=== PATIENT | male | born 1990 | race Caucasian/White ===

== ENCOUNTER → 2016-05-07 | Outpatient (CLI) | payer OTHER ==
[~2016-05-07] VITALS: Ht 170.2 cm; Wt 75.6 kg
[~2016-05-07] MED LIST: ACET1TAB84 PO; BISA10SU3 PR; DEXA0.5E3 PO; DEXA2TAB PO; DIAZ-165 PO; DOCU-94 PO; DXM/4 PO; KFL/250 PO; ONDA4TAB46 PO; SCOP1DIS14 TD; SULF800T23 PO; [UNRECOGNIZED DRUG - CODE] PO
[2016-05-07 14:43] VITALS: BP 144/77; PULSE 69; Ht 170.2 cm; Wt 75.6 kg
== END | disposition home or self-care (01) ==
LOC: C.NEUR 14:15
PROVIDERS: ATTEND Internal Medicine Pulmonary Disease
DX: R06.83 Snoring (principal); R53.83 Other fatigue; R06.81 Apnea, not elsewhere classified; Z78.9 Other specified health status

== ENCOUNTER → 2016-06-09 | Outpatient (CLI) | payer OTHER ==
--- NOTE | 2016-06-10 08:10 | PAP/PSG TECHNICIAN REPORT ---
[facility] Video Game Repair Technician Polysomnogram Report Study name: None Report date: 06/10/2016 Study date: 06/09/2016 Referring Physician: Sohan Champion M.D. Name: MIKE ESPINOSA Interpreting Physician: Sohan Champion M.D. Date of : 1990 Video Game Repair Technician: Rhiannon Salazar, PSGT. Sex: Male Age: 25 StudyType: PSG Weight: 160 lbs Height: 25 years, Height 5' 0" Neck Circum:15 inches BMI: 31.24 Medications: NONE Patient History 25 YR. OLD MALE IN ROOM 5, WITH FRAGMENTED SLEEP ONSET MANY YEARS, HE WAS ALSO TOLD WHILE ON A FLIGHT THAT HE STOPPED BREATHING WHILE SLEEPING. HE DENIES SNORING.ESS= 1, NECK = 15 INCHES. Parameters Monitored NPSG: E1-M2, E2-M1, Fp1-M2, Fp2-M1, F3-M2, F4-M2, F4-M1, C3-M2, C4-M2, C4-M1, O1-M2, O2-M2, O2-M1, T3-M2, T4-M1, P3-M2, P4-M1, CHIN1, CHIN2, HR, EKG, Legs, PFLOW, SNOR, FLOW, CFLOW, Tidal Volume, THOR, ABDO, SpO2, PLTH, CPRESS, ETCO2 Wave, ETCO2, pH Sleep Architecture Sleep Stages Time at Lights Off 10:46:50 PM STAGES Time (min.) TST (%) Time at Lights On 6:08:50 AM Wake 43.5 -- Total Recording Time (TRT) 447.50 min. N1 11.5 3 Total Sleep Period (TSP) 410.0 min. N2 260.5 65 Total Sleep Time (TST) 398.0min. N3 46.5 12 Awake Time 47.5 min. REM 79.5 20 Wake after Sleep Onset 12.0 min. Sleep Efficiency (SE) 90 % Sleep Onset Latency (MERI) 32.0 min. Number of Stage 1 Shifts None Awakenings 5 Stage Changes 34 Number of REM periods 5 REM 79.5 20 REM Latency 61.5 min. NREM 318.5 80 Body Position Analysis Supine Right Left Side Prone Vertical Total Sleep Time (min.) 143.3 122.0 147.0 269.03 0.0 0.0 Total Sleep Time (%) 32% 31% 37% 68 0% N/A% Total Sleep Time REM (min.) 36.0 28.0 15.5 None 0.0 0.0 Total Sleep Time NREM (min.) 93.0 94.0 131.5 None 0.0 0.0 Intermittent Wake (min.) 14.3 3.5 25.7 None 0.0 0.0 Total Sleep Period (%) 33% None None None None None Arousals Myoclonus (PLM) * Events Count Index Events Count Index Spontaneous 47 7 Events Awake (PLMW) 1 1.4 Respiratory 1 0.2 Events Asleep w/ Arousal (PLMA) 3 0.5 PLM 3 0 Events Asleep w/o Arousal (PLMS) 82 12.4 Snoring 1 0 Total Asleep 85 12.8 Total 52 8 Total 86 12 Respiratory Analysis * CA OA MA CH H RERA Total Count 2 1 0 0 2 0 5 Index 0.3 0.2 0.0 0 0.3 0 0.8 Mean Duration 11.5 9.8 0.0 0.00 15.7 0.0 12.8 Longest Duration 13.6 9.8 0.0 0.00 0.0 0.0 21.2 Respiratory Event Summary Total Supine ~Supine Right Left Prone REM NREM Apneas Count 3 2 1 1 0 N/A 2 1 Index 0.5 1 0 0.5 0.0 N/A 2 0 Hypopneas (4% Desat) Count 2 0 2 2 0 N/A 0 2 Index 0.3 0.0 0 1.0 0.0 N/A 0.0 0.4 Apneas & All Hypopneas Count 5 2 3 3 0 N/A 2 3 Index 0.8 1 1 1 0 N/A 1.5 0.6 Respiratory Events (Casing Flusher+All Hyp+RERA) Count 5 2 3 3 0 N/A 2 3 Index 0.8 1 1 1.5 0.0 N/A 1.5 0.6 Respiratory Related Arousal Count 1 2 0 0 0 N/A 0 1 Index 0.2 0 0 0 0 N/A 0 0 Snoring Analysis Supine Right Left Prone REM NREM Total Snore duration 3.3 min Snores count 79 25 5 N/A 13 96 109 Snore mean duration 1.8 Sec Snores index 37 12 2 N/A 9.8 18.1 16.4 TST with snoring (%) 0.8% Desaturation Event Summary: Minimum %SpO2 Event Count Mean/Min/Max Duration(sec.) Desaturation Index % Time In Bed > 90 2 28.8 / 12.3 / 45.3 0.3 99.9 86 - 90 0 N/A 0.0 0.1 81 - 85 0 N/A 0.0 0.0 76 - 80 0 N/A 0.0 0.0 71 - 75 0 N/A 0.0 0.0 66 - 70 0 N/A 0.0 0.0 61 - 65 0 N/A 0.0 0.0 56 - 60 0 N/A 0.0 0.0 51 - 55 0 N/A 0.0 0.0 < 50 0 N/A 0.0 0.0 Total REM NREM Awake <50% 0.0 min. 0.0 min. 0.0 min. 0.0 min. 51 - 60% 0.0 min. 0.0 min. 0.0 min. 0.0 min. 61 - 70% 0.0 min. 0.0 min. 0.0 min. 0.0 min. 71 - 80% 0.0 min. 0.0 min. 0.0 min. 0.0 min. 81 - 90% 0.3 min. 0.0 min. 0.3 min. 0.0 min. 91 - 100% 436.2 min. 79.1 min. 315.8 min. 41.2 min. Average 93 94 93 94 Minimum SpO2 90 91 90 91 Desaturation Event Index 0.3 0.0 0.4 0.0 # Desat. Events below 89% N/A N/A N/A N/A Time(%) with Saturation below 89% 0.0 0.0 0.0 0.0 Time(min.) with Saturation below 89% 0.0 0.0 0.0 0.0 Time (mins) REM (mins) NREM (mins) % of TST SpO2 Below 90% 2 N/A N2 0.0 SpO2 Below 88% 0 0 0 0 Heart Rate Analysis Min (bpm) Max (bpm) Average (bpm) Awake 32 127 52 NREM 42 127 54 REM 46 92 57 Overall 42 127 55 Supplemental O2 Values Minimum O2 level: None Value Start Time End Time Video Game Repair Technician Comments PSG Study Mr. Espinosa slept in the right, left, and supine positions. Cardiac arrhythmia displayed 6 pvc's, No PLM's noted. No bruxism noted. Snoring was noted and scored as a 1 on a scale of 1 through 5. (0=no snoring, 5=snoring loud enough to be heard through a closed door or down the carney way) Mr. Espinosa awoke to use the restroom zero times during the night. Mr. Espinosa stated, I did not sleep as well as I do when I am in my own bed. The final report will be interpreted and signed by a sleep physician. The completed physician report will then be placed in the patient medical record. Therapy (cm H2O) 0 TIB (min.) 441.5 TST (min.) 398.0 Sleep Onset (min.) 32.0 REM Onset From Sleep (min.) 61.5 Sleep Efficiency % 90 Wakefulness (%) 10 Wakefulness (min.) 47.5 NREM 1 (%) 3 NREM 1 (min.) 11.5 NREM 2 (%) 65 NREM 2 (min.) 260.5 NREM 3 (%) 12 NREM 3 (min.) 46.5 REM (%) 20 REM (min.) 79.5 # Arousals 52 Arousal Index 8 # Snore 109 Snore Index 16.4 AHI 0.8 AHI Supine 1 AHI Non-Supine 1 NREM AHI 0.6 REM AHI 1.5 RDI 0.8 # Obstructive Apnea 1 # Central Apnea 2 # Mixed Apnea 0 # Hypopneas 2 RERAs 0 Total Respiratory Events 5 Time Below SpO2 89% (min.) 0.0 Mean NREM SpO2 (%) 93 Mean REM SpO2 (%) 94 Mean Sleep SpO2 (%) 93 Min NREM SpO2 (%) 90 Min REM SpO2 (%) 91 Position Supine (min.) 143.3 Position Non-supine (min.) 269.0 LM Index Sleep 12.8 LM Index NREM 10.4 LM Index REM 22.6 Mean Heart Rate (bpm) 55 Min Heart Rate (bpm) 42
--- NOTE | 2016-06-11 08:49 | POLYSOMNOGRAPH REPORT ---
CLINICAL DATA: 25-year-old male with BMI of 31.24 referred by myself and Dr. Coulter. 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 He was told on a flight that he stopped breathing while sleeping. SLEEP ARCHITECTURE: Total sleep period was 410 minutes. Total sleep time was 398 minutes divided between 318.5 minutes of non-REM sleep and 79.5 minutes of REM sleep. Sleep onset latency was slightly delayed at 32 minutes. REM latency was 61.5 minutes. Sleep efficiency was 90%. Wake after sleep onset was 12 minutes. Sleep consisted of stage N1 3%, N2 65%, N3 12%, and REM 20%. AROUSAL DATA: 52 arousals recorded for an index of 8 per hour. 47 were spontaneous. PLM DATA: 85 limb movements during sleep were noted for an index of 12.8 per hour with arousal of 0.5 per hour. RESPIRATORY DATA: There was no significant sleep apnea/hypopnea was noted. The AHI was 0.8. There were 2 central and 1 obstructive apneic episodes. The longest duration of apnea was 13.6 seconds. There were 2 hypopneic episodes. The mean length of hypopneas was 15.7 seconds. OXIMETRY DATA: No hypoxemia was seen. Oxygen naun was 90%. Mean saturation was 93%. EKG: Heart drainage from 42-127 beats per minute. Occasional PVCs were noted. STRIPPING SHOVEL OILER'S COMMENTS: The patient slept in the right, left, and supine positions. Snoring was mild, rated 1 on a scale of 1 through 5. He had four sleep cycles each of which ended in REM sleep. IMPRESSION: No evidence of clinically significant sleep apnea/hypopnea, nocturnal hypoxemia or abnormal limb movements during sleep to explain this patient's symptoms. RECOMMENDATIONS: The patient should continue to practice good sleep hygiene. BANDAR
== END | disposition home or self-care (01) ==
LOC: C.NEUR 20:00
PROVIDERS: ATTEND Internal Medicine Pulmonary Disease
DX: R53.83 Other fatigue (principal); R06.83 Snoring; R06.81 Apnea, not elsewhere classified

== ENCOUNTER → 2016-06-18 | Outpatient (CLI) | payer OTHER ==
[~2016-06-18] VITALS: Ht 170.2 cm; Wt 73.3 kg
[2016-06-18 16:18] VITALS: BP 122/78; PULSE 71; Ht 170.2 cm; Wt 73.3 kg
== END | disposition home or self-care (01) ==
LOC: C.NEUR 14:55
PROVIDERS: ATTEND Internal Medicine Pulmonary Disease
DX: R53.83 Other fatigue (principal); R06.83 Snoring

== ENCOUNTER → 2016-10-30 | Outpatient (CLI) | payer OTHER ==
--- NOTE | 2016-10-30 16:59 | DIAGNOSTIC IMAGING REPORT ---
MRI OF THE LUMBAR SPINE WITHOUT CONTRAST CLINICAL HISTORY: RIGHT SIDED BACK PAIN; SCIATICA; LUMBOSACRAL PAIN COMPARISON STUDY: No previous studies for comparison. TECHNIQUE: Utilizing a 1.5 Nahomy magnet and dedicated coil, multiplanar, multiecho imaging of the lumbar spine was performed without IV contrast. FINDINGS: For purposes of numbering on this exam, the L5-S1 disc space is assigned to axial image 27 of 30. Alignment of the lumbar spine is anatomic. Vertebral body heights are maintained. There is no intracanalicular mass or fluid collection. Paravertebral soft tissues are unremarkable. Conus terminates at the upper L1 level. L1-2: The central canal and neural foramen are patent. L2-3: The central canal and neural foramina are patent. L3-4: The central canal and neural foramen are patent. L4-5: The central canal and neural foramen are patent. L5-S1: The central canal and neural foramen are patent. IMPRESSION: Unremarkable MRI of the lumbar spine. Electronically signed by: Felipe Branch M.D. 10/30/2016 4:57 PM Dictated Date/Time: 10/30/2016 4:55 PM
--- NOTE | 2016-10-30 23:27 | DIAGNOSTIC IMAGING REPORT ---
MRI OF THE THORACIC SPINE WITHOUT CONTRAST CLINICAL HISTORY: Right-sided back pain. Sciatica. COMPARISON: None. TECHNIQUE: Utilizing a 1.5 Nahomy magnet and dedicated coil, multiplanar, multiecho imaging of the thoracic spine was performed without IV contrast. FINDINGS: Slack Line Yarder images demonstrate a 3.2 x 2.9 cm mass-like abnormality either within the left cerebellar hemisphere or the cerebellar vermis. This is suboptimally assessed on this exam. Alignment of the thoracic spine is anatomic. Vertebral body heights are maintained. Thoracic cord signal and caliber are normal. There is no intracanalicular mass or fluid collection. Paravertebral soft tissues are unremarkable. IMPRESSION: 1. 3.2 x 2.9 cm mass-like abnormality within the left cerebellar hemisphere or cerebellar vermis. This is suboptimally assessed on this exam but is suggestive of a neoplasm and differential considerations include benign and malignant etiologies. An MRI of the brain with and without contrast is recommended. Discussed with Amado Newman at time of dictation 2. Normal MRI of the thoracic spine. Electronically signed by: Felipe Branch M.D. 10/30/2016 11:26 PM Dictated Date/Time: 10/30/2016 4:35 PM
== END ==
LOC: C.MRIBC 15:39
PROVIDERS: ATTEND Physician Assistant
DX: M54.41 Lumbago with sciatica, right side (principal)

== ENCOUNTER → 2016-10-31 | Outpatient (CLI) | payer OTHER ==
[~2016-10-31] MED LIST changes: +GADAVIST IV PRN
--- NOTE | 2016-10-31 17:41 | DIAGNOSTIC IMAGING REPORT ---
MRI OF THE BRAIN WITHOUT AND WITH IV CONTRAST CLINICAL HISTORY: Abnormal MRI the thoracic spine. Possible cerebellar mass. COMPARISON STUDY: MRI the thoracic spine dated 10/30/2016 TECHNIQUE: MRI of the brain was performed from the vertex to the skull base utilizing various T1 and T2 weighted sequences. Following the IV administration of 7.5 mL of Gadavist contrast, additional enhanced images were obtained. FINDINGS: Sagittal T1, axial diffusion, proton density and T2 weighted axial, coronal FLAIR, and pre and post axial T1-weighted images were acquired. These were supplemented with post gadolinium coronal T1 weighted images. There is a 32 mm cerebellar mass located posterior to the fourth ventricle, slightly eccentric to the left. The mass is slightly hypointense to brain on T1-weighted images, and hyperintense to brain on T2-weighted and FLAIR images. There is no significant postcontrast enhancement. No additional masses are visualized. Axial diffusion-weighted images reveal no evidence of acute or subacute infarction. There is no evidence of ventricular dilatation. Proton density T2-weighted and FLAIR images reveal no significant signal abnormalities with the exception of the cerebellar mass. There are no abnormal flow voids. There is no evidence of pathologic enhancement. IMPRESSION: 1. 32 mm posterior fossa mass located posterior to the fourth ventricle, slightly eccentric to the left. There is no significant postcontrast enhancement. Given the lack of symptoms, this lesion should be presumed neoplastic until proven otherwise. There is no hydrocephalus. Neurosurgical consultation is recommended. Electronically signed by: Huang Hillman M.D. 10/31/2016 5:40 PM Dictated Date/Time: 10/31/2016 5:31 PM
--- NOTE | 2016-10-31 17:51 | DIAGNOSTIC IMAGING REPORT ---
MRI CERVICAL SPINE COMBO CLINICAL HISTORY: Right-sided back pain. Abnormal MRI the thoracic spine. TECHNIQUE: Sagittal and axial T1, T2 and STIR images were obtained. COMPARISON STUDY: MRI the thoracic spine dated 10/30/2016 There are no suspicious areas of marrow replacement. No intrinsic cervical cord lesions are visualized. There is a 3 cm mass located within the posterior fossa, posterior to the fourth ventricle. C2-3: There is no evidence of disc bulge or focal herniation. There is no spinal or foraminal stenosis. C3-4: There is no evidence of disc bulge or focal herniation. There is no spinal or foraminal stenosis. C4-5: There are no disc bulges or focal herniations. There is no spinal or foraminal stenosis. C5-6 :There are no disc bulges or focal herniations. There is no spinal or foraminal stenosis. C6-7: There is no evidence of disc bulge or focal herniation. There is no evidence of spinal or foraminal stenosis. C7-T1: There is no evidence of disc bulge or focal herniation. There is no evidence of spinal or foraminal stenosis. IMPRESSION: 1. 3 cm relatively midline posterior fossa mass located posterior to the fourth ventricle. 2. Otherwise normal MRI of the cervical spine. Electronically signed by: Huang Hillman M.D. 10/31/2016 5:50 PM Dictated Date/Time: 10/31/2016 5:46 PM
== END | disposition home or self-care (01) ==
LOC: C.MRI 15:38
PROVIDERS: ATTEND Physician Assistant
DX: G93.9 Disorder of brain, unspecified (principal)

== ENCOUNTER → 2016-12-25 | Outpatient (CLI) | payer OTHER ==
[~2016-12-25] MED LIST changes: -GADAVIST IV PRN
--- NOTE | 2016-12-25 17:10 | DIAGNOSTIC IMAGING REPORT ---
CT HEAD WITHOUT CONTRAST (CT) CLINICAL HISTORY: DIZZINESS HISTORY OF RECENT CRANIOTOMY. COMPARISON STUDY: MRI the brain dated 10/31/2016 TECHNIQUE: Axial CT of the brain is performed from the vertex to the skull base. IV contrast was not administered for this examination. A dose lowering technique was utilized adhering to the principles of ALARA. CT DOSE: 844.62 mGy.cm FINDINGS: There are postsurgical changes of the occipital craniotomy. There is a posterior cerebellar resection cavity measuring approximately 46 mm in diameter. There is minimal mass effect on the fourth ventricle. There is no acute hemorrhage. There is a 57 mm fluid collection within the suboccipital soft tissues, likely representing a postsurgical seroma or CSF collection. There is no evidence of pathologic ventricular dilatation. There is no evidence of acute sinusitis IMPRESSION: 1. Postsurgical changes of occipital craniotomy with interval resection of the previously identified cerebellar mass 2. 46 mm posterior cerebellar resection cavity. 3. Mild mass effect on the fourth ventricle. No evidence of significant hydrocephalus 4. 57 mm partially visualized fluid collection in the suboccipital soft tissues, likely representing a postsurgical seroma or CSF collection. Electronically signed by: Huang Hillman M.D. 12/25/2016 5:08 PM Dictated Date/Time: 12/25/2016 5:02 PM
== END | disposition home or self-care (01) ==
LOC: C.CTS 16:31
PROVIDERS: ATTEND Physical Medicine & Rehabilitation
DX: R42 Dizziness and giddiness (principal); R93.0 Abnormal findings on diagnostic imaging of skull and head, not elsewhere classified

== ENCOUNTER 2017-01-10 11:27 | Emergency (ER) | payer OTHER ==
[~2017-01-10] VITALS: Ht 170.2 cm; Wt 59.2 kg
[2017-01-10 11:35] VITALS: TEMP 36.6; Ht 170.2 cm; Wt 59.2 kg
[2017-01-10] MEDS ORDERED: SODIUM CHLORIDE 0.9% 1000ML 1,000 ML IV STA ×2 (11:38→12:57)
[2017-01-10] MEDS ORDERED: SCOP1DIS14 TD (12:00)
[2017-01-10] MEDS ORDERED: DOCU-94 PO (12:00)
[2017-01-10] MEDS ORDERED: KFL/250 PO (12:00)
[2017-01-10] MEDS ORDERED: DEXA0.5E3 PO (12:00)
[2017-01-10] MEDS ORDERED: BISA10SU3 PR (12:00)
[2017-01-10] MEDS ORDERED: ONDA4TAB46 PO (12:00)
[2017-01-10 12:09] VITALS: O2SAT 97
[2017-01-10 12:20] LABS: BASO % 0.1 %; BASO ABS # 0.02 K/uL (0-0.2); COMPLETE YES; EOS % 0.2 %; HEMATOCRIT 47.7 % (42-52); IG% 1.8 %; LYMPH % 6.6 %; LYMPH ABS # 1.29 K/uL (1.2-3.4); MEAN CELL VOLUME 86.1 fL (80-100); MEAN CORPUSCULAR HEMOGLOBIN 31.2 pg (25-34); MEAN CORPUSCULAR HGB CONC 36.3 g/dl (32-36); MEAN PLATELET VOLUME 9.6 fL (7.4-10.4); MONO % 7.1 %; NEUT % 84.2 %; PLATELET COUNT 274 K/uL (130-400); RED BLOOD COUNT 5.54 M/uL (4.7-6.1); WHITE BLOOD COUNT 19.62 K/uL (4.8-10.8)
[2017-01-10] MEDS ORDERED: ONDANSETRON INJ 2 MG/ML 2 ML VIAL IV STA (12:20)
[2017-01-10] MEDS ORDERED: MoRPHine SULFATE 4 MG/ML 1 ML CARP\\VIAL IV STA ×2 (12:20→13:16)
[2017-01-10 12:32] LABS: PARTIAL THROMBOPLASTIN RATIO 0.9; PROTHROMBIN TIME (PATIENT) 10.5 SECONDS (9.0-12.0)
[2017-01-10 12:41] LABS: BUN/CREATININE RATIO 15.2 (10-20); CALCIUM 9.7 mg/dl (8.5-10.1); CREATININE 1.2 mg/dl (0.60-1.40); MAGNESIUM 2.3 mg/dl (1.8-2.4); POTASSIUM 3.6 mmol/L (3.5-5.1)
[2017-01-10 12:46] LABS: ALB/GLOB RATIO 1.2 (0.9-2)
--- NOTE | 2017-01-10 12:55 | DIAGNOSTIC IMAGING REPORT ---
KUB CLINICAL HISTORY: Minimal bowel movements x 1 month. Abdominal and back pain. COMPARISON STUDY: None. FINDINGS: The bowel gas pattern is normal. Pelvic calcifications likely reflect phleboliths. There is a moderate to large amount of stool within the colon and rectum. IMPRESSION: 1. No evidence of a bowel obstruction. 2. Moderate to large amount of stool within the colon and rectum. Electronically signed by: Felipe Branch M.D. 01/10/2017 12:54 PM Dictated Date/Time: 01/10/2017 12:53 PM
[2017-01-10] MEDS ORDERED: OPTIRAY 320 IV PRN (13:30)
[2017-01-10] MEDS ORDERED: HYDROmorphone INJ 0.5 MG/0.5 ML SYR IV STA (14:53)
[2017-01-10 15:17] LABS: URINE APPEARANCE CLEAR (CLEAR); URINE BILIRUBIN NEG (NEG); URINE COLOR YELLOW; URINE NITRITE NEG (NEG); URINE SPECIFIC GRAVITY 1.019 (1.000-1.030); UROBILINOGEN NEG (NEG); ZZUR CULT IF INDIC CLEAN CATCH NO
[2017-01-10 15:22] LABS: MANUAL MICROSCOPIC REQUIRED? NO; REVIEW REQ? NO
--- NOTE | 2017-01-10 16:17 | DIAGNOSTIC IMAGING REPORT ---
CT ABD/PELVIS IV AND ORAL CONT CLINICAL HISTORY: Lower abdominal pain COMPARISON STUDY: None. TECHNIQUE: Following the IV administration of 94 mL of Optiray-320, CT scan of the abdomen and pelvis was performed from the lung bases to the proximal femurs. Images are reviewed in the axial, sagittal, and coronal planes. IV contrast was administered without complication. A dose lowering technique was utilized adhering to the principles of ALARA. CT DOSE: 298.45 mGy.cm FINDINGS: Lower chest: The heart is normal in size and configuration, without pericardial effusion. The lung bases and pleural spaces are clear. Liver: The contrast-enhanced liver is normal in size, contour, and attenuation. There is no intrahepatic biliary ductal dilatation. The hepatic veins and portal veins are patent. Gallbladder: Unremarkable. Spleen: Normal in size and attenuation. Pancreas: Unremarkable. Adrenal glands: Unremarkable. Kidneys: There are punctate nonobstructing left renal calculi. There is right-sided perinephric edema. There is minor right-sided hydronephrosis. There is right-sided periureteral edema. There is minor right-sided hydroureter. There is edema present at the ureterovesical junction. There is a 3 mm bladder calculus. Bowel: There are no transition zones indicate bowel obstruction. There is moderate fecal retention and there is moderate fluid within the left colon. The appendix appears normal. Peritoneum: There is no intraperitoneal free air or abdominal ascites. Vasculature: The abdominal aorta is normal in course and caliber. Adenopathy: None. Pelvic viscera: The bladder, and pelvic viscera are unremarkable. Skeletal structures: No destructive osseous lesions are seen. IMPRESSION: 1. Mild right-sided hydroureteronephrosis with right-sided perinephric edema. This is felt to be secondary to a recently passed 3 mm calculus which is now positioned within the dependent portion of the bladder 2. Normal appendix 3. No evidence of bowel obstruction. No evidence of free air 4. Fecal retention with moderate left colonic fluid. Electronically signed by: Huang iHllman M.D. 01/10/2017 4:16 PM Dictated Date/Time: 01/10/2017 4:09 PM
--- NOTE | 2017-01-10 16:56 | EMERGENCY ROOM VISIT NOTE ---
History First contact with patient: 11:29 Chief Complaint: BACK PAIN Stated Complaint: BACK PAIN History of Present Illness The patient is a 26 year old male who presents to the Emergency Room with complaints of "back pain". 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 He states that he has been doing well, and had a follow-up Friday. He has been battling constipation since that time, and has been using over-the- counter medication to include MiraLAX, suppositories as well as stool softener such as Colace. He states that he had acute onset of right-sided flank pain this morning, followed by vomiting and abdominal pain. He is here concerned that his constipation has worsened. He does note photosensitivity, but states that this has been ongoing since his surgery and is actually been improving. He denies any headache, or new neck stiffness. He denies any fevers or chills. He does note a slight rash on his body which she's had for the past few weeks after leaving [facility], and was diagnosed with folliculitis and has been treated with Keflex for the past 2 days. Review of Systems A complete 10-point Review of Systems was discussed with the patient, with pertinent positives and negatives listed in the History of Present Illness. All remaining Review of Systems questions can be considered negative unless otherwise specified. Past Medical/Surgical History Brain tumor resection. Family History No pertinent. Social History Smoking Status: Never Smoker Patient lives locally. Current/Historical Medications Scheduled Cephalexin Monohydrate (Keflex), 250 MG PO QID Docusate Sodium (Colace), 1 CAP PO BID Scopolamine (Transderm-Scop), 3 MG TD Q72H Scheduled PRN Dexamethasone (Dexamethasone), 5 ML PO BID PRN for unknown Ondansetron Hcl (Zofran), 4 MG PO for Nausea Miscellaneous Medications Bisacodyl (Dulcolax), 1 SUPP TX Physical Exam Vital Signs Date Time Temp Pulse Resp B/P (MAP) Pulse Ox O2 Delivery O2 Flow Rate FiO2 01/10/17 17:01 81 18 131/91 100 Room Air 01/10/17 15:17 57 18 156/88 99 Room Air 01/10/17 14:18 57 155/89 100 Room Air 01/10/17 13:07 64 01/10/17 12:49 56 16 158/95 99 Room Air 01/10/17 12:09 97 Room Air 01/10/17 11:35 36.6 55 18 162/92 100 Room Air Physical Exam VITAL SIGNS - Vital signs and nursing notes were reviewed. Stable. He notes that he does have a normally slow heart rate. 27 GENERAL -26-year-old male appearing his stated age who is in no acute distress. Communicates well with provider and answers questions appropriately. SKIN -he does have small punctate erythematous papules overlying his arms, legs and back. HEAD - NC/AT. No darnell signs or raccoons eyes. There is a well-healing surgical scar on the base of the occiput area. EYES - PERRL with EOMI bilaterally. Sclera anicteric. No hyphema. EARS - No deformities of external structures noted on gross examination bilaterally. No pain elicited with palpation of the tragus bilaterally. External auditory canals without discharge or otorrhea. Tympanic membranes pearly garcia without retraction or bulging. No fluid or purulent material visualized behind the TM. Handle of malleus, umbo, cone of light, pars tensa/ flaccid all easily visualized. NOSE - Midline and without cyanosis. No epistaxis or purulent drainage noted. Septum midline without deviation or septal hematoma noted. MOUTH/OROPHARYNX - Without perioral cyanosis. Buccal mucosa pink and moist and without leukoplakia. Tongue midline with equal elevation of palate bilaterally. No tonsillar hypertrophy, erythema, or exudates noted. Fair dentition noted. NECK - Neck with FROM. Supple to palpation. No lymphadenopathy noted. No nuchal rigidity. No evidence of meningitis or encephalitis on examination. LUNGS - Chest wall symmetric without accessory muscle use, intercostals retractions, or central cyanosis. Normal vesicular breath sounds CTA B/L. No wheezes, rales, or rhonchi appreciated. CARDIAC - RRR with S1/S2. No murmur, rubs, or gallops appreciated. ABDOMEN - Abdominal contour without pulsations or visible masses. BS normoactive all four quadrants. Diffuse abdominal tenderness in the right lower quadrant, left lower quadrant and right flank. No palpable masses, hepatosplenomegaly, or ascites noted. EXTREMITIES - No clubbing or peripheral cyanosis. No pretibial edema present. NEUROLOGIC - Cranial nerves II through XII grossly intact. Sensory intact to light touch throughout. PSYCH - A&Ox3 and cooperates fully with examiner. Pt is very pleasant and interacts well with examiner. Medical Decision & Procedures ER Provider Diagnostic Interpretation: KUB CLINICAL HISTORY: Minimal bowel movements x 1 month. Abdominal and back pain. COMPARISON STUDY: None. FINDINGS: The bowel gas pattern is normal. Pelvic calcifications likely reflect phleboliths. There is a moderate to large amount of stool within the colon and rectum. IMPRESSION: 1. No evidence of a bowel obstruction. 2. Moderate to large amount of stool within the colon and rectum. Electronically signed by: Felipe Branch M.D. 01/10/2017 12:54 PM Dictated Date/Time: 01/10/2017 12:[address] ABD/PELVIS IV AND ORAL CONT CLINICAL HISTORY: Lower abdominal pain COMPARISON STUDY: None. TECHNIQUE: Following the IV administration of 94 mL of Optiray-320, CT scan of the abdomen and pelvis was performed from the lung bases to the proximal femurs. Images are reviewed in the axial, sagittal, and coronal planes. IV contrast was administered without complication. A dose lowering technique was utilized adhering to the principles of ALARA. CT DOSE: 298.45 mGy.cm FINDINGS: Lower chest: The heart is normal in size and configuration, without pericardial effusion. The lung bases and pleural spaces are clear. Liver: The contrast-enhanced liver is normal in size, contour, and attenuation. There is no intrahepatic biliary ductal dilatation. The hepatic veins and portal veins are patent. Gallbladder: Unremarkable. Spleen: Normal in size and attenuation. Pancreas: Unremarkable. Adrenal glands: Unremarkable. Kidneys: There are punctate nonobstructing left renal calculi. There is right-sided perinephric edema. There is minor right-sided hydronephrosis. There is right-sided periureteral edema. There is minor right-sided hydroureter. There is edema present at the ureterovesical junction. There is a 3 mm bladder calculus. Bowel: There are no transition zones indicate bowel obstruction. There is moderate fecal retention and there is moderate fluid within the left colon. The appendix appears normal. Peritoneum: There is no intraperitoneal free air or abdominal ascites. Vasculature: The abdominal aorta is normal in course and caliber. Adenopathy: None. Pelvic viscera: The bladder, and pelvic viscera are unremarkable. Skeletal structures: No destructive osseous lesions are seen. IMPRESSION: 1. Mild right-sided hydroureteronephrosis with right-sided perinephric edema. This is felt to be secondary to a recently passed 3 mm calculus which is now positioned within the dependent portion of the bladder 2. Normal appendix 3. No evidence of bowel obstruction. No evidence of free air 4. Fecal retention with moderate left colonic fluid. Electronically signed by: uHang Hillman M.D. 01/10/2017 4:16 PM Dictated Date/Time: 01/10/2017 4:09 PM Laboratory Results 01/10/17 12:00 Red Blood Count 5.54, Mean Corpuscular Volume 86.1, Mean Corpuscular Hemoglobin 31.2, Mean Corpuscular Hemoglobin Concent 36.3, Mean Platelet Volume 9.6, Neutrophils (%) (Auto) 84.2, Lymphocytes (%) (Auto) 6.6, Monocytes (%) (Auto) 7.1, Eosinophils (%) (Auto) 0.2, Basophils (%) (Auto) 0.1, Neutrophils # (Auto) 16.52, Lymphocytes # (Auto) 1.29, Monocytes # (Auto) 1.39, Eosinophils # (Auto) 0.04, Basophils # (Auto) 0.02 01/10/17 12:00 Test 01/10/17 12:00 01/10/17 12:08 01/10/17 14:31 01/10/17 15:00 White Blood Count 19.62 K/uL (4.8-10.8) Red Blood Count 5.54 M/uL (4.7-6.1) Hemoglobin 17.3 g/dL (14.0-18.0) Hematocrit 47.7 % (42-52) Mean Corpuscular Volume 86.1 fL (80-100) Mean Corpuscular Hemoglobin 31.2 pg (25-34) Mean Corpuscular Hemoglobin Concent 36.3 g/dl (32-36) Platelet Count 274 K/uL (130-400) Mean Platelet Volume 9.6 fL (7.4-10.4) Neutrophils (%) (Auto) 84.2 % Lymphocytes (%) (Auto) 6.6 % Monocytes (%) (Auto) 7.1 % Eosinophils (%) (Auto) 0.2 % Basophils (%) (Auto) 0.1 % Neutrophils # (Auto) 16.52 K/uL (1.4-6.5) Lymphocytes # (Auto) 1.29 K/uL (1.2-3.4) Monocytes # (Auto) 1.39 K/uL (0.11-0.59) Eosinophils # (Auto) 0.04 K/uL (0-0.5) Basophils # (Auto) 0.02 K/uL (0-0.2) RDW Standard Deviation 39.9 fL (36.4-46.3) RDW Coefficient of Variation 12.6 % (11.5-14.5) Immature Granulocyte % (Auto) 1.8 % Immature Granulocyte # (Auto) 0.36 K/uL (0.00-0.02) Prothrombin Time 10.5 SECONDS (9.0-12.0) Prothromb Time International Ratio 1.0 (0.9-1.1) Activated Partial Thromboplast Time 24.2 SECONDS (21.0-31.0) Partial Thromboplastin Ratio 0.9 Anion Gap 12.0 mmol/L (3-11) Est Creatinine Clear Calc Drug Dose 77.4 ml/min Estimated GFR () 95.5 Estimated GFR (Non- 82.4 BUN/Creatinine Ratio 15.2 (10-20) Calcium Level 9.7 mg/dl (8.5-10.1) Magnesium Level 2.3 mg/dl (1.8-2.4) Total Bilirubin 0.5 mg/dl (0.2-1) Aspartate Amino Transf (AST/SGOT) 9 U/L (15-37) Alanine Aminotransferase (ALT/SGPT) 36 U/L (12-78) Alkaline Phosphatase 101 U/L (45-117) Total Creatine Kinase 26 U/L (39-308) Creatine Kinase MB 1.3 ng/ml (0.5-3.6) Creatine Kinase MB Ratio 5.0 (0-3.0) Total Protein 7.6 gm/dl (6.4-8.2) Albumin 4.2 gm/dl (3.4-5.0) Globulin 3.4 gm/dl (2.5-4.0) Albumin/Globulin Ratio 1.2 (0.9-2) Bedside Lactic Acid Venous 4.80 mmol/L (0.90-1.70) Lactic Acid Level 3.7 mmol/L (0.4-2.0) Urine Color YELLOW Urine Appearance CLEAR (CLEAR) Urine pH 7.0 (4.5-7.5) Urine Specific [place] 1.019 (1.000-1.030) Urine Protein NEG (NEG) Urine Glucose (UA) NEG (NEG) Urine Ketones NEG (NEG) Urine Occult Blood 2+ (NEG) Urine Nitrite NEG (NEG) Urine Bilirubin NEG (NEG) Urine Urobilinogen NEG (NEG) Urine Leukocyte Esterase NEG (NEG) Urine WBC (Auto) 1-5 /hpf (0-5) Urine RBC (Auto) 10-30 /hpf (0-4) Urine Hyaline Casts (Auto) 1-5 /lpf (0-5) Urine Epithelial Cells (Auto) 5-10 /lpf (0-5) Urine Bacteria (Auto) NEG (NEG) Medications Administered Medications (Trade) Dose Ordered Sig/Juliane Route Start Time Stop Time Status Last Admin Dose Admin Sodium Chloride 1,000 ml @ 999 mls/hr Q1H1M STAT IV 01/10/17 11:38 01/10/17 12:38 DC 01/10/17 12:26 999 MLS/HR Morphine Sulfate (MoRPHine SULFATE INJ) 4 mg NOW STAT IV 01/10/17 12:20 01/10/17 12:21 DC 01/10/17 12:26 4 MG Ondansetron HCl (Zofran Inj) 4 mg NOW STAT IV 01/10/17 12:20 01/10/17 12:21 DC 01/10/17 12:26 4 MG Sodium Chloride 1,000 ml @ 999 mls/hr Q1H1M STAT IV 01/10/17 12:57 01/10/17 13:57 DC 01/10/17 13:05 999 MLS/HR Morphine Sulfate (MoRPHine SULFATE INJ) 4 mg NOW STAT IV 01/10/17 13:16 01/10/17 13:17 DC 01/10/17 13:24 4 MG Hydromorphone HCl (Dilaudid Inj) 0.5 mg NOW STAT IV 01/10/17 14:53 01/10/17 14:58 DC 01/10/17 15:17 0.5 MG Medical Decision Patient was seen and evaluated as above. He presents to us today with right- sided abdominal pain, and is writhing in pain. He is afebrile, has a slightly slower heart rate and sounded be slightly hypertensive. He is covering his eyes , noting photosensitivity which is believed to be chronic. There is no evidence of meningitis or encephalitis on examination. CBC reveals leukocytosis of 19.62, no anemia noted. Patient is on dexamethasone chronically since his surgery. Coags are normal. Metabolic workup reveals creatinine slightly high at 1.2, lactic acid high at 4.8, total CK low at 26, and CK-MB normal at 1.3. Urine reveals 2+ blood, and red blood cells with a few epithelial cells. No bacteria. KUB reveals a lot of stool. Patient is felt to be likely constipated, therefore enema was initiated. Minimal success was had. Patient was given morphine here several times for his pain. He was reevaluated, and decision was made to obtain a CT scan after discussing the case with the attending physician. CT scan was obtained after the use of intravenous and oral contrast. He was then reevaluated, was given Dilaudid and was feeling much better. He states that he feels 100% better. It was identified on CAT scan he likely had a kidney stone causing his symptoms here today. His lactic acid was repeated after 2 L of intravenous fluid and came down to 3.2. I do not believe that he is septic after identifying the kidney stone, but blood cultures were initially drawn and are pending. The patient this time appears stable for discharge, and was also seen by the attending physician who is in agreement. Attending physician was Dr. Turner. As for the rash, I believe he is likely extrinsic folliculitis or a mild contact dermatitis secondary to probably a detergent used at the rehabilitation facility as well as a sedentary lifestyle over the past few weeks. I would like to be specific and that I do not believe he has meningitis, encephalitis or sepsis on examination, I believe that his presentation was likely secondary to an acute onset of a kidney stone which she has now passed. He certainly follow up with his family doctor regarding today's visit, and to return with worsening. He was educated upon management. He was educated upon worrisome symptoms in which to return, had questions or dish, and was discharged home in good condition. In evaluation and treatment of this patient the following differential diagnoses were entertained: Sepsis, meningitis, encephalitis, rhabdomyolysis, renal calculi, fecal retention, among others. Impression Primary Impression: Renal calculi Additional Impressions: Hydronephrosis Elevated lactic acid level Departure Information Dispostion Home / Self-Care Condition GOOD Referrals Rhiannon Branch M.D. (PCP) Patient Instructions My [facility] Additional Instructions You have been treated in the Emergency Department your Abdominal Pain and back pain which I believe is likely secondary to a kidney stone that you may have passed during her time here in the emergency department. Laboratory results and imaging studies have ruled out any emergent causes for your abdominal pain which would warrant admission or surgery. As we discussed I do not believe that you have any infection in your spinal cord or brain. Please continue your regular medications. Drink plenty of water and stay well hydrated. As with any trip to the Emergency Department, you should follow-up with your Primary Care Provider from today's visit. Please continue the [id number] supplementation for your bowel movements. Return to the emergency department if your symptoms persist despite treatment plan outlined above or if the following symptoms occur: increased fevers, chills , worsening nausea/vomiting, blood in your stool or urine. Please return to the emergency department with any new/concerning symptoms. Problem Qualifiers
[2017-01-10 17:01] VITALS: BP 131/91; PULSE 81; O2SAT 100
== END 2017-01-10 17:05 | disposition home or self-care (01) ==
LOC: EDBD 11:27 → C.EDC 11:28
DX: N20.0 Calculus of kidney (principal); N13.30 Unspecified hydronephrosis; R74.0 Nonspecific elevation of levels of transaminase and lactic acid dehydrogenase [LDH]; Z79.899 Other long term (current) drug therapy

== ENCOUNTER 2017-01-18 12:51 | Emergency (ER) | payer OTHER ==
[~2017-01-18] VITALS: Ht 170.2 cm; Wt 60.1 kg
[~2017-01-18 12:51] MED LIST changes: -ACET1TAB84 PO; -DEXA2TAB PO; -DIAZ-165 PO; -DXM/4 PO; -SULF800T23 PO; -[UNRECOGNIZED DRUG - CODE] PO
[2017-01-18 13:00] VITALS: TEMP 36.6; Ht 170.2 cm; Wt 60.1 kg
--- NOTE | 2017-01-18 13:20 | EMERGENCY ROOM VISIT NOTE ---
History Report prepared by Asya: Raya Mcmanus Under the Supervision of: Dr. Nestor Adams D.O. First contact with patient: 13:04 Chief Complaint: CONSTIPATION Stated Complaint: POST SURGERY CONSTIPATION-RECTAL PAIN-BLEEDING Nursing Triage Summary: Patient states he has not had a bowel movement since 01/11/2017 He was given Miralax on 01/15/2017 and started colace but is unable to have a bowel movement He states he is now having abdominal cramping and pain History of Present Illness The patient is a 26 year old male who presents to the Emergency Room with complaints of constipation for the past 7 days. 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 He was here approximately 1 week ago for a kidney stone and was given an enema for his constipation at that visit which provided relief. The patient states today that he has not had a bowel movement since January 11. He has tried Shelly-Lax, Colace, prune juice and suppositories with no relief. He complains of abdominal pain and cramping and reports his stool is occasionally "liquid" when he is able to pass small amounts. He saw his PCP this past week who recommended the suppositories. The patient denies any fevers. He states he has been taking Tylenol for his post-surgical pain but denies taking any narcotics since he was in the hospital. He notes he has been experiencing balance issues since undergoing the surgery as well as tremors when he sits down on a toilet. The patient denies any history of previous abdominal surgeries. Source of History: patient Onset: 7 days [employer] Position: other (rectum) Timing: constant Modifying Factors (Relieving): other (Shelly-Lax, Colace, enema, suppository, prune juice) Associated Symptoms: + abdominal pain, + diarrhea, No fevers Review of Systems See HPI for pertinent positives & negatives. A total of 10 systems reviewed and were otherwise negative. Past Medical & Surgical Medical Problems: (1) History of benign brain tumor Surgical Problems: (1) History of brain surgery Social History Smoking Status: Never Smoker Smokeless Tobacco Use: No Alcohol Use: occasionally Drug Use: none Marital Status: Housing Status: lives with significant other Occupation Status: employed Current/Historical Medications Scheduled Peg (High)/E-Lyte Soln (Golytely 236 gm), 1 BTL PO DAILY Allergies Coded Allergies: No Known Allergies (Unverified , 01/18/17) Physical Exam Vital Signs Date Time Temp Pulse Resp B/P (MAP) Pulse Ox O2 Delivery O2 Flow Rate FiO2 01/18/17 16:45 63 16 127/71 97 01/18/17 14:46 68 16 130/75 98 Room Air 01/18/17 13:00 36.6 95 16 142/90 97 Room Air Physical Exam GENERAL: Patient is awake, alert, in no acute distress, patient is resting comfortably and showing no signs of anxiety EYES: The conjunctivae are clear. The pupils are round and reactive. EARS, NOSE, MOUTH AND THROAT: The nose is without any evidence of any deformity. Mucous membranes are moist tongue is midline NECK: The neck is nontender and supple. RESPIRATORY: Normal respiratory effort is noted there is no evidence of wheezing rhonchi or rales CARDIOVASCULAR: Regular rate and rhythm noted there no murmurs rubs or gallops normal S1 normal S2 GASTROINTESTINAL: The abdomen is mildly distended but soft. No tenderness, guarding or rigidity to palpation. Bowel sounds are present in all quadrants. MUSCULOSKELETAL/EXTREMITIES: There is no evidence of gross deformity full range of motion is noted in the hips and shoulders SKIN: There is no obvious evidence of any rash. There are no petechiae, pallor or cyanosis noted. NEUROLOGIC: Patient is awake alert and oriented x3 Medical Decision & Procedures ER Provider Diagnostic Interpretation: Radiology results as stated below per my review and radiologist interpretation: CHEST AND ABDOMEN 2 VIEWS HISTORY: constipation COMPARISON: Abdomen and pelvis CT and KUB 01/10/2017. FINDINGS: The lungs are clear. The cardiomediastinal silhouette is within normal limits. There is no pneumoperitoneum or pneumatosis. The bowel gas pattern is unremarkable. No evidence for bowel obstruction. Multiple pelvic phleboliths are again noted. Large amount well-formed stool seen throughout the colon. This remains unchanged. IMPRESSION: No acute process within the chest. No change in the large amount of well-formed stool seen throughout the colon. Electronically signed by: Javid Bhakta M.D. 01/18/2017 1:45 PM Medications Administered Medications (Trade) Dose Ordered Sig/Juliane Route Start Time Stop Time Status Last Admin Dose Admin Miscellaneous (Soap Suds Enema) 1 ea ONE STAT [place] 01/18/17 13:44 01/18/17 13:46 DC 01/18/17 14:00 1 ED Course 1308: The patient was evaluated in room A2. A complete history and physical examination were performed. 1344: Soap Suds Enema 1 ea W[place]. 1630: I reevaluated the patient. He was able to have a bowel movement and is feeling well and resting comfortably. I discussed his results and discharge instructions and he verbalized complete understanding and agreement. Medical Decision Prior records/ancillary studies reviewed. Triage Nursing notes reviewed. The patient's history was concerning for abdominal pain. Differential diagnosis: Etiologies such as appendicitis, diverticulitis, PUD, biliary pathology, UTI, pancreatitis, obstruction, mesenteric ischemia, aortic pathology, infections, inflammatory bowel disease, renal colic, as well as others were entertained. The patient is a 26-year-old male who presented to the emergency department for evaluation of constipation. The patient had very significant constipation on physical exam as well as radiographically. He does not appear to have signs of obstruction. On physical exam he had significant fecal impaction. Some of this was removed but the patient had significant pain with this and he asked me to stop. The patient was given an enema which did not significantly relieve his symptoms. I feel part of the problem is he has difficulty straining with bowel movements because of his recent surgery for a posterior fossa mass. The patient was given a prescription for GoLYTELY. I feel that this will help him significantly but I'm very concerned about his problems with straining. He was encouraged to try this but not to strain to heavily. He was also encouraged to drink plenty clear liquids and continue using the Shelly lax and the other medications she was using for constipation. He was also encouraged to follow-up with his family doctor soon as possible but return to the emergency Department immediately if symptoms change worsen or the need arises. [place] Drug Monitoring Program Search Results: patient reviewed within database Drug Monitoring Findings: In October, the patient received Diazepam and Oxycodone. Medication Reconcilliation Current Medication List: was personally reviewed by me Blood Pressure Screening Patient's blood pressure: Normal blood pressure Blood pressure disposition: Did not require urgent referral Impression Primary Impression: Constipation Scribe Attestation The scribe's documentation has been prepared under my direction and personally reviewed by me in its entirety. I confirm that the note above accurately reflects all work, treatment, procedures, and medical decision making performed by me. Departure Information Dispostion Home / Self-Care Prescriptions Peg (High)/E-Lyte Soln (Golytely 236 gm) 1 Dose/240 Ml Soln 1 BTL PO DAILY, #1 PKT Prov: Nestor Adams, 01/18/17 Referrals Rhiannon Branch M.D. (PCP) Patient Instructions Constipation, My [facility] Additional Instructions Continue all medications as prescribed. Drink plenty clear liquids. Use the GoLYTELY as instructed. Follow-up with your family this week.
[2017-01-18] MEDS ORDERED: ACET1TAB84 PO (13:24)
[2017-01-18] MEDS ORDERED: DXM/4 PO (13:24)
[2017-01-18] MEDS ORDERED: DEXA2TAB PO (13:24)
[2017-01-18] MEDS ORDERED: DIAZ-165 PO (13:24)
[2017-01-18] MEDS ORDERED: SULF800T23 PO (13:24)
[2017-01-18] MEDS ORDERED: SOAP SUDS ENEMA PR STA (13:44)
--- NOTE | 2017-01-18 13:47 | DIAGNOSTIC IMAGING REPORT ---
CHEST AND ABDOMEN 2 VIEWS HISTORY: constipation COMPARISON: Abdomen and pelvis CT and KUB 01/10/2017. FINDINGS: The lungs are clear. The cardiomediastinal silhouette is within normal limits. There is no pneumoperitoneum or pneumatosis. The bowel gas pattern is unremarkable. No evidence for bowel obstruction. Multiple pelvic phleboliths are again noted. Large amount well-formed stool seen throughout the colon. This remains unchanged. IMPRESSION: No acute process within the chest. No change in the large amount of well-formed stool seen throughout the colon. Electronically signed by: Javid Bhakta M.D. 01/18/2017 1:45 PM Dictated Date/Time: 01/18/2017 1:44 PM
[2017-01-18] MEDS ORDERED: [UNRECOGNIZED DRUG - CODE] PO (14:23)
[2017-01-18 16:45] VITALS: BP 127/71; PULSE 63; O2SAT 97
== END 2017-01-18 16:46 | disposition home or self-care (01) ==
LOC: C.EDB 12:52 → C.EDA 16:46
DX: K59.00 Constipation, unspecified (principal); Z86.011 Personal history of benign neoplasm of the brain; Z98.890 Other specified postprocedural states